=== PATIENT | female | born 1950 | race Caucasian/White ===

== ENCOUNTER 2017-02-26 07:43 | Day surgery (SDC) | payer OTHER, MEDICARE ==
[2017-02-21 11:27] VITALS: BMI 37.8
[2017-02-26] MEDS ORDERED: PROPOFOL 20 ML ONE ×2 (07:56)
[2017-02-26 11:16] VITALS: BP 114/65; PULSE 78; TEMP 98.2
== END 2017-02-26 10:20 | disposition home or self-care (01) ==
LOC: FASU-ENDO 07:43
PROVIDERS: ATTEND Internal Medicine Gastroenterology
PROC: 0DJD8ZZ Inspection of Lower Intestinal Tract, Via Natural or Artificial Opening Endoscopic (ICD-10-PCS; principal; 2017-02-26 09:00)
DX: Z86.010 Personal history of colon polyps (principal); K57.30 Diverticulosis of large intestine without perforation or abscess without bleeding

== ENCOUNTER 2017-12-22 11:19 | Emergency (ER) | payer OTHER, MEDICARE ==
[2017-12-22 11:24] VITALS: BP 153/74; PULSE 85; TEMP 98.9; BMI 42.5
--- NOTE | 2017-12-22 11:44 | PDOC ---
History of Present Illness - General Chief Complaint: Respiratory Stated Complaint: COUGH Time Seen by Provider: 12/22/17 11:24 - History of Present Illness Initial Comments: 12/22/17 13:19 The patient is a 67 year old female with a history of lower extremity edema and HLD who presents for evaluation of cough and fatigue. The patient reports a 4 day history of cough, sweating, body aches, and fatigue. She states that she was visiting her cousin in [place] who had similar symptoms and was diagnosed with bronchitis. The patient states she flew back yesterday and given her symptoms were not improving, decided to present to the ED for evaluation. She states that she has been coughing up yellowish sputum. She denies fevers, chills, chest pain, SOB, nausea, vomiting, abdominal pain, or changes with urination or bowel movements. Past History - Past Medical History Allergies/Adverse Reactions: Allergies Allergy/AdvReac Type Severity Reaction Status Date / Time No Known Allergies Allergy Verified 12/22/17 11:20 Home Medications: Ambulatory Orders Ascorbate Calcium [Vitamin C] 1,000 mg PO DAILY 02/21/17 Aspirin [Aspirin EC] 81 mg PO DAILY 02/21/17 Atorvastatin Ca [Lipitor] 10 mg PO DAILY 02/21/17 Biotin 1 mg PO DAILY 02/21/17 Calcium Carbonate [Calcium] 500 mg PO DAILY 02/21/17 Cholecalciferol (Vitamin D3) [Vitamin D3] 2,000 unit PO DAILY 02/21/17 Furosemide [Lasix -] 20 mg PO BID 02/21/17 Multivit-Min/Iron/Folic/Lutein [Centrum Silver Women Tablet] 1 each PO DAILY 01/05 Potassium Chloride 10 meq PO BID 02/21/17 Vitamin E Mixed [Vitamin E] 800 unit PO DAILY 02/21/17 Albuterol Sulfate Inhaler - [Ventolin HFA Inhaler -] 1 - 2 inh PO QID PRN #1 inhaler 12/22/17 Azithromycin 500 mg PO DAILY #5 tablet 12/22/17 Anemia: No Asthma: No Cancer: No Cardiac Disorders: No CVA: No COPD: No CHF: No Dementia: No Diabetes: No GI Disorders: No Disorders: No HTN: No Hypercholesterolemia: Yes Liver Disease: No Seizures: No Thyroid Disease: No - Surgical History Abdominal Surgery: No Appendectomy: Yes Cardiac Surgery: No Cholecystectomy: No Lung Surgery: No Neurologic Surgery: No Orthopedic Surgery: Yes (Right Ankle Fusion) - Suicide/Smoking/Psychosocial Hx Smoking History: Former smoker Have you smoked in the past 12 months: No Number of Cigarettes Smoked Daily: 2 Information on smoking cessation initiated: No Hx Alcohol Use: No Drug/Substance Use Hx: No Substance Use Type: None Hx Substance Use Treatment: No Review of Systems - Review of Systems Comments:: 12/22/17 13:23 Constitutional: Fatigue, Body aches. No fevers, chills, HEENT: No Rhinorrhea, nasal congestion, visual changes Cardiovascular: No chest pain, syncope, palpitations, lightheadedness Respiratory: Cough. No SOB, Hemoptysis, Gastrointestinal: No Abdominal pain, Nausea, Vomiting, Constipation, Diarrhea, Melena Genitourinary: No Dysuria, Frequency, Urgency, Hesitancy, Hematuria, Flank pain Musculoskeletal: No Myalgia, arthralgia Skin: No rashes, itching, bruising, pallor Neurologic: No Headache, Dizziness, Numbness, Weakness, or Tingling Psychiatric: No Hallucinations. No SI or HI *Physical Exam - Vital Signs Last Vital Signs Temp Pulse Resp BP Pulse Ox 98.9 F 85 18 153/74 96 12/22/17 11:20 12/22/17 11:20 12/22/17 11:20 12/22/17 11:20 12/22/17 11:20 - Physical Exam Comments: 12/22/17 13:23 General Appearance: Nourished. No Apparent Distress HEENT: No Pharyngeal Erythema, Tonsillar Exudate, Tonsillar Erythema Neck: No Cervical Lymphadenopathy Respiratory/Chest: Lungs Clear, Normal Breath Sounds. No Crackles, Rales, Rhonchi, Wheezing Cardiovascular: Regular Rhythm, Regular Rate. No Murmur, Gallops, Rubs Gastrointestinal/Abdominal: Normal Bowel Sounds, Soft. No Guarding, Rebound, Tenderness Musculoskeletal: No CVA Tenderness Extremity: 3+ pitting edema in the lower extremities. Normal Capillary Refill Integumentary: Normal Color, Dry, Warm Neurologic: Fully Oriented, Alert, Normal Mood/Affect, Normal Response, ED Treatment Course - LABORATORY CBC & Chemistry Diagram: 12/22/17 11:45 12/22/17 11:45 Medical Decision Making - Medical Decision Making 12/22/17 13:24 The patient is a 67 year old female with a history of lower extremity edema and HLD who presents for evaluation of cough and fatigue. Differential includes but is not limited to: Viral illness, Bronchitis, Pneumonia, infectious, metabolic derangement. Given the patient's history, it is likely the patient symptoms are due to a viral illness or bronchitis. We will treat with azithromycin and a duoneb here in the ED. We will obtain a cbc, cmp, bnp, and chest plain film to evaluate further. We will continue to monitor and reassess. 12/22/17 13:29 Chest plain film is unremarkable as read by our radiologist. CBC, cmp are unremarkable. We are comfortable discharging the patient home at this time with an albuterol inhaler and a course of azithromycin. We discussed with the patient return precautions including worsening symptoms, fevers, difficulty breathing. We informed the patient that she should follow up with her primary care provider. The patient voiced understanding and is agreeable with the plan. *DC/Admit/Observation/Transfer Diagnosis at time of Disposition: Bronchitis - Discharge Dispostion Disposition: HOME Condition at time of disposition: Good Admit: No - Prescriptions Prescriptions: Albuterol Sulfate Inhaler - [Ventolin HFA Inhaler -] 1 - 2 inh PO QID PRN #1 inhaler PRN Reason: Wheezing Azithromycin 500 mg PO DAILY #5 tablet - Referrals Referrals: Eh Polanco [Primary Care Provider] - - Patient Instructions Printed Discharge Instructions: DI for Acute Bronchitis Additional Instructions: Please return to the ER if you experience concerning or worsening symptoms including worsening fevers, difficulty breathing, chest pain. Your lab results and x-rays were normal here in the ER. Your symptoms are likely due to a viral bronchitis. We have sent a prescription for antibiotics to your pharmacy which you should take once a day. We have also sent a prescription for an albuterol inhaler to your pharmacy that you may use as needed for wheezing. Please call to schedule a follow up appointment with your primary care provider within 2-3 days to further discuss your ER visit and management of your symptoms. - Post Discharge Activity
[2017-12-22 12:04] LABS: BASO % 1.1 % (0-2.0); EOS % 4.1 % (0-4.5); HEMATOCRIT 40.3 % (32.4-45.2); HEMOGLOBIN 13.3 GM/dl (10.7-15.3); LYMPH % 18.6 % (8-40); MCH 28.6 pg (25.7-33.7); MCHC 33.2 g/dl (32.0-36.0); MEAN CELL VOLUME 86.2 fl (80-96); MEAN PLT VOLUME 6.7 fl (7.5-11.1); MONO % 9.2 % (3.8-10.2); PLATELET COUNT 345 K/MM3 (134-434); RBC 4.67 M/mm3 (3.60-5.2); RDW 13.4 % (11.6-15.6); WHITE BLOOD COUNT 5.1 K/mm3 (4.0-10.8)
[2017-12-22 12:22] LABS: ALBUMIN 4.1 g/dl (3.5-5.0); ALK PHOS 70 U/L (32-92); ANION GAP 9 (8-16); BILIRUBIN,TOTAL 0.8 mg/dl (0.2-1.0); BLOOD UREA NITROGEN 18 mg/dl (7-18); CALCIUM 9.5 mg/dl (8.4-10.2); CHLORIDE 102 mmol/L (98-107); CO2 28 mmol/L (22-28); CREATININE 0.6 mg/dl (0.6-1.3); GLUCOSE,RANDOM 96 mg/dl (74-106); POTASSIUM 4.2 mmol/L (3.5-5.1); SGOT/AST 22 U/L (10-42); SGPT/ALT 21 U/L (10-40); SODIUM 139 mmol/L (136-145); TOT PROT 7.4 g/dl (6.4-8.3)
[2017-12-22] MEDS ORDERED: ALBUTEROL SO4 2.5/IPRATROPIUM 0.5 INH SOL 3 ML VIAL.NEB. NEB ONE ×2 (13:28→13:35)
[2017-12-22] MEDS ORDERED: AZITHROMYCIN 500 MG TABLET PO ONE (13:28)
[2017-12-22] MEDS ORDERED: AZITHROMYCIN 250 MG TABLET ONE (13:35)
--- NOTE | 2017-12-22 13:41 | PDOC ---
Attending Attestation - Resident Resident Name: David Momin - ED Attending Attestation I have performed the following: I have examined & evaluated the patient, The case was reviewed & discussed with the resident, I agree w/resident's findings & plan - HPI HPI: 12/22/17 13:39 67-year-old female with remote history of minimal smoking presents complaining of one week of cough. She was exposed to multiple people with respiratory illness, and she developed a cough productive of white to yellow sputum. There is no fever. There is no chest pain. There is no shortness of breath. - Physicial Exam PE: 12/22/17 13:40 Patient is awake, alert, and fully oriented. Oropharynx is clear. Neck without nodes. Lungs have scattered expiratory wheezes. There are no crackles. Heart is regular rhythm without gallop or murmur. Abdomen is soft and nontender. Extremities are notable for chronic edema, patient states they' re unchanged from baseline for many years. - Medical Decision Making 12/22/17 13:40 Chest x-ray PA and lateral was performed and reviewed by me. There is no focal infiltrate. There is no congestive heart failure. Impression: Acute bronchitis, likely viral versus atypical bacterial. Bronchospasm secondary to acute infection. Plan: Azithromycin, started in the ED and complete course at home DuoNeb in the ED Albuterol 2 puffs every 4 hours as needed at home. follow-up with primary care physician.
[2017-12-22 13:52] LABS: N-TERMINAL BNP 589.25 pg/ml (5-125)
== END 2017-12-22 14:20 | disposition home or self-care (01) ==
LOC: FER 11:19
DX: R05 Cough (principal)
CPT/HCPCS: 36415; 71046-TC-FY; 80053; 83880; 85025; 99283-25

== ENCOUNTER 2018-09-09 17:48 | Emergency (ER) | payer OTHER, MEDICARE ==
[2018-09-09 18:08] VITALS: BP 160/88; PULSE 77; TEMP 97.7; BMI 41.5
[2018-09-09] MEDS ORDERED: IBUPROFEN 600 MG TABLET (FP) PO ONE ×2 (18:12→18:59)
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
== END 2018-09-09 19:25 | disposition home or self-care (01) ==
LOC: FER 17:48
DX: M13.831 Other specified arthritis, right wrist (principal); M65.841 Other synovitis and tenosynovitis, right hand; E78.5 Hyperlipidemia, unspecified; Z87.891 Personal history of nicotine dependence
CPT/HCPCS: 73110-TC-RT-FY; 73130-TC-RT-FY; 99282-25

== ENCOUNTER 2021-06-28 16:32 | Inpatient (IN) | payer OTHER, MEDICARE ==
[2021-06-28 17:25] VITALS: BMI 43.4
[2021-06-28 18:08] LABS: BASO % 0.5 % (0-2.0); EOS % 1.2 % (0-4.5); HEMATOCRIT 39.9 % (32.4-45.2); HEMOGLOBIN 13.7 GM/dL (10.7-15.3); LYMPH % 21.8 % (8-40); MCH 29.9 pg (25.7-33.7); MCHC 34.2 g/dl (32.0-36.0); MEAN CELL VOLUME 87.3 fl (80-96); MEAN PLT VOLUME 6.9 fl (7.5-11.1); MONO % 9.2 % (3.8-10.2); NEUT % 67.3 % (42.8-82.8); PLATELET COUNT 310 10^3/uL (134-434); RBC 4.57 M/mm3 (3.60-5.2); RDW 14.8 % (11.6-15.6); WHITE BLOOD COUNT 7.3 K/mm3 (4.0-10.0)
[2021-06-28 18:31] LABS: ALBUMIN 3.5 g/dl (3.4-5.0); CALCIUM 9.2 mg/dL (8.5-10.1)
[2021-06-28 18:35] LABS: CREATININE 0.9 mg/dL (0.55-1.3)
[2021-06-28 18:36] LABS: BILIRUBIN,TOTAL 0.9 mg/dL (0.2-1)
[2021-06-28 18:39] LABS: N-TERMINAL BNP 5861.7 pg/ml (5-125)
[2021-06-28] MEDS ORDERED: HEPARIN NA (PORCINE) 5,000 UNITS/ML 1ML VIAL IVPUSH ONE (21:59)
[2021-06-28] MEDS ORDERED: HEPARIN NA (PORCINE) 5,000 UNITS/ML 1ML VIAL IVPUSH PRN ×2 (21:59)
[2021-06-28] MEDS ORDERED: HEPARIN INFUSION - 25,000 UNITS/500 ML INFUS.BAG IVPB SCH (22:00)
[2021-06-28] MEDS ORDERED: HEPARIN INFUSION - 25,000 UNITS/500 ML INFUS.BAG IVPB ONE (22:41)
[2021-06-28] MEDS ORDERED: HEPARIN NA (PORCINE) 5,000 UNITS/ML 1ML VIAL ONE (22:41)
[2021-06-29] MEDS ORDERED: MELATONIN 5 MG TABLETS PO ONE (02:07)
[2021-06-29 06:57] LABS: BASO % 0.9 % (0-2.0); EOS % 1.7 % (0-4.5); HEMATOCRIT 36.1 % (32.4-45.2); HEMOGLOBIN 12.4 GM/dL (10.7-15.3); LYMPH % 26.2 % (8-40); MCHC 34.4 g/dl (32.0-36.0); MEAN CELL VOLUME 87.3 fl (80-96); MEAN PLT VOLUME 7.2 fl (7.5-11.1); MONO % 9.4 % (3.8-10.2); NEUT % 61.8 % (42.8-82.8); PLATELET COUNT 269 10^3/uL (134-434); RBC 4.13 M/mm3 (3.60-5.2); WHITE BLOOD COUNT 6.2 K/mm3 (4.0-10.0)
[2021-06-29 07:07] LABS: INR 1.24 (0.83-1.09); PROTHROMBIN TIME (PATIENT) 14.9 SEC (9.7-13.0)
[2021-06-29 09:26] LABS: ALBUMIN 2.8 g/dl (3.4-5.0); BILIRUBIN,TOTAL 0.9 mg/dL (0.2-1); BLOOD UREA NITROGEN 21.3 mg/dL (7-18); CALCIUM 8.6 mg/dL (8.5-10.1); CREATININE 0.7 mg/dL (0.55-1.3); MAGNESIUM 2.3 mg/dL (1.8-2.4); PHOSPHOROUS 4.4 mg/dL (2.5-4.9); TOT PROT 6.1 g/dl (6.4-8.2)
[2021-06-29] MEDS ORDERED: PNEUMOC 13-VAL CONJ-DIP CRM/PF 0.5 ML DISP.SYRIN IM ONE (10:00)
[2021-06-29] MEDS: MUPIROCIN 2% TOPICAL OINTMENT FOR DECOLONIZATION NS SCH ×2 (11:00→22:32)
[2021-06-29] MEDS ORDERED: ALTEPLASE IVPB ONE (15:15)
[2021-06-29] MEDS ORDERED: SODIUM CHLORIDE IVPB ONE (15:15)
[2021-06-29] MEDS ORDERED: MIDAZOLAM HCL 2 MG/2 ML SINGLE DOSE VIAL IVPUSH ONE (15:32)
[2021-06-29] MEDS ORDERED: MIDAZOLAM HCL 2 MG/2 ML SINGLE DOSE VIAL ONE (15:37)
[2021-06-29] MEDS ORDERED: HEPARIN NA (PORCINE) 5,000 UNITS/ML 1ML VIAL IVPUSH PRN (18:20)
[2021-06-29] MEDS: HEPARIN - 25,000 UNIT in SODIUM CHLORIDE 495 ML IV SCH (18:20)
[2021-06-29] MEDS ORDERED: ACETAMINOPHEN 1000 MG/100 ML VIAL (NON FORMULARY) IVPB PRN (21:19)
[2021-06-29] MEDS: ACETAMINOPHEN 325 MG TABLET (FP) PO PRN (22:14)
[2021-06-29] MEDS: CHLORHEXIDINE GLUCONATE 4% CLEANSER FOR DECOLONIZATION TP SCH (22:32)
[2021-06-30] MEDS: HEPARIN NA (PORCINE) 5,000 UNITS/ML 1ML VIAL IVPUSH PRN (01:53)
[2021-06-30 07:01] LABS: HEMOGLOBIN 12.7 GM/dL (10.7-15.3); MCH 29.5 pg (25.7-33.7); MCHC 33.5 g/dl (32.0-36.0); MEAN PLT VOLUME 7.2 fl (7.5-11.1); PLATELET COUNT 290 10^3/uL (134-434); RBC 4.32 M/mm3 (3.60-5.2); RDW 14.6 % (11.6-15.6); WHITE BLOOD COUNT 6.7 K/mm3 (4.0-10.0)
[2021-06-30 07:25] LABS: CALCIUM 8.6 mg/dL (8.5-10.1)
[2021-06-30 07:26] LABS: ALBUMIN 2.9 g/dl (3.4-5.0); MAGNESIUM 2.2 mg/dL (1.8-2.4)
[2021-06-30 07:29] LABS: CREATININE 0.7 mg/dL (0.55-1.3); PHOSPHOROUS 3.3 mg/dL (2.5-4.9)
[2021-06-30 07:31] LABS: TOT PROT 6.4 g/dl (6.4-8.2)
[2021-06-30] MEDS: MUPIROCIN 2% TOPICAL OINTMENT FOR DECOLONIZATION NS SCH ×2 (11:00→22:29)
[2021-06-30] MEDS ORDERED: ALTEPLASE 50MG 25 MG in SODIUM CHLORIDE 225 ML IVPB ONE (15:45)
[2021-06-30] MEDS ORDERED: LIDOCAINE PATCH REMOVAL MC ONE (22:00)
[2021-06-30] MEDS: HEPARIN - 25,000 UNIT in SODIUM CHLORIDE 495 ML IV SCH (22:28)
[2021-06-30] MEDS: CHLORHEXIDINE GLUCONATE 4% CLEANSER FOR DECOLONIZATION TP SCH (22:29)
[2021-06-30] MEDS: ACETAMINOPHEN 1000 MG/100 ML VIAL (NON FORMULARY) IVPB PRN (22:29)
[2021-06-30] MEDS ORDERED: LIDOCAINE 5% TOPICAL PATCH TP ONE ×2 (22:33→23:06)
[2021-07-01] MEDS: MUPIROCIN 2% TOPICAL OINTMENT FOR DECOLONIZATION NS SCH ×2 (10:00→22:36)
[2021-07-01] MEDS: ACETAMINOPHEN 1000 MG/100 ML VIAL (NON FORMULARY) IVPB PRN ×2 (10:34→19:32)
[2021-07-01] MEDS ORDERED: LIDOCAINE PATCH REMOVAL MC ONE (11:00)
[2021-07-01] MEDS ORDERED: LIDOCAINE 5% TOPICAL PATCH TP ONE ×2 (11:39→22:56)
[2021-07-01] MEDS ORDERED: LIDOCAINE PATCH REMOVAL MC PRN (17:50)
[2021-07-01] MEDS ORDERED: LIDOCAINE PATCH REMOVAL MC SCH (22:00)
[2021-07-01] MEDS: CHLORHEXIDINE GLUCONATE 4% CLEANSER FOR DECOLONIZATION TP SCH (22:36)
[2021-07-01 23:02] LABS: INR 1.29 (0.83-1.09); PROTHROMBIN TIME (PATIENT) 15.7 SEC (9.7-13.0)
[2021-07-01 23:05] LABS: ACTIVATED PTT 32.7 SECONDS (25.2-36.5)
[2021-07-01] MEDS: HEPARIN NA (PORCINE) 5,000 UNITS/ML 1ML VIAL IVPUSH PRN (23:44)
[2021-07-02] MEDS: LIDOCAINE PATCH REMOVAL MC SCH ×2 (00:13→22:10)
[2021-07-02] MEDS: ACETAMINOPHEN 325 MG TABLET (FP) PO PRN (01:25)
[2021-07-02] MEDS ORDERED: HEPARIN NA (PORCINE) 5,000 UNITS/ML 1ML VIAL SQ ONE (02:01)
[2021-07-02] MEDS ORDERED: POLYETHYLENE GLYCOL (HEALTHYLAX) 3350 17 GM PACKET PO PRN (07:42)
[2021-07-02] MEDS: ALPRAZolam 0.25 MG TABLET PO PRN (07:56)
[2021-07-02] MEDS: HEPARIN NA (PORCINE) 5,000 UNITS/ML 1ML VIAL IVPUSH PRN (12:13)
[2021-07-02] MEDS: MUPIROCIN 2% TOPICAL OINTMENT FOR DECOLONIZATION NS SCH ×2 (13:09→22:06)
[2021-07-02] MEDS ORDERED: PT OWN MED DRAWER 7, Y5N ONE (14:17)
[2021-07-02] MEDS: HEPARIN - 25,000 UNIT in SODIUM CHLORIDE 495 ML IV SCH ×2 (15:19→22:10)
[2021-07-02] MEDS: DOCUSATE SODIUM 100 MG CAPSULE (FP) PO PRN (18:43)
[2021-07-02] MEDS: CHLORHEXIDINE GLUCONATE 4% CLEANSER FOR DECOLONIZATION TP SCH (22:06)
[2021-07-02] MEDS ORDERED: ACETAMINOPHEN 1000 MG/100 ML VIAL (NON FORMULARY) IVPB ONE (23:54)
[2021-07-03 07:54] LABS: BASO % 0.9 % (0-2.0); EOS % 3.7 % (0-4.5); HEMOGLOBIN 11.9 GM/dL (10.7-15.3); LYMPH % 29.2 % (8-40); MCH 29.8 pg (25.7-33.7); MCHC 34.1 g/dl (32.0-36.0); MEAN CELL VOLUME 87.3 fl (80-96); MEAN PLT VOLUME 7.4 fl (7.5-11.1); MONO % 10.5 % (3.8-10.2); NEUT % 55.7 % (42.8-82.8); PLATELET COUNT 296 10^3/uL (134-434); RBC 4.01 M/mm3 (3.60-5.2); RDW 14.6 % (11.6-15.6); WHITE BLOOD COUNT 5.8 K/mm3 (4.0-10.0)
[2021-07-03 08:03] LABS: CALCIUM 8.7 mg/dL (8.5-10.1)
[2021-07-03 08:04] LABS: BLOOD UREA NITROGEN 17.8 mg/dL (7-18); MAGNESIUM 2.2 mg/dL (1.8-2.4)
[2021-07-03 08:07] LABS: CREATININE 0.7 mg/dL (0.55-1.3); PHOSPHOROUS 3.9 mg/dL (2.5-4.9)
[2021-07-03 08:09] LABS: INR 1.19 (0.83-1.09); PROTHROMBIN TIME (PATIENT) 14.6 SEC (9.7-13.0)
[2021-07-03 08:13] LABS: ACTIVATED PTT 43.3 SECONDS (25.2-36.5)
[2021-07-03] MEDS ORDERED: PT OWN MED DRAWER 7, Y5N ONE (09:56)
[2021-07-03] MEDS: MUPIROCIN 2% TOPICAL OINTMENT FOR DECOLONIZATION NS SCH ×2 (09:57→21:48)
[2021-07-03] MEDS: HEPARIN NA (PORCINE) 5,000 UNITS/ML 1ML VIAL IVPUSH PRN (18:35)
[2021-07-03] MEDS: HEPARIN - 25,000 UNIT in SODIUM CHLORIDE 495 ML IV SCH (21:43)
[2021-07-03] MEDS: DOCUSATE SODIUM 100 MG CAPSULE (FP) PO PRN (21:46)
[2021-07-03] MEDS: CHLORHEXIDINE GLUCONATE 4% CLEANSER FOR DECOLONIZATION TP SCH (21:48)
[2021-07-04 07:47] LABS: MCH 29.4 pg (25.7-33.7); MCHC 33.4 g/dl (32.0-36.0); MEAN CELL VOLUME 88.1 fl (80-96); PLATELET COUNT 322 10^3/uL (134-434); RBC 4.09 M/mm3 (3.60-5.2); RDW 14.3 % (11.6-15.6)
[2021-07-04 07:59] LABS: INR 1.12 (0.83-1.09); PROTHROMBIN TIME (PATIENT) 13.7 SEC (9.7-13.0)
[2021-07-04 08:01] LABS: ACTIVATED PTT 49.2 SECONDS (25.2-36.5)
[2021-07-04 08:25] LABS: BLOOD UREA NITROGEN 21.9 mg/dL (7-18); CALCIUM 8.9 mg/dL (8.5-10.1); MAGNESIUM 2.3 mg/dL (1.8-2.4)
[2021-07-04 08:28] LABS: CREATININE 0.7 mg/dL (0.55-1.3)
[2021-07-04 08:29] LABS: PHOSPHOROUS 3.5 mg/dL (2.5-4.9)
[2021-07-04] MEDS ORDERED: APIXABAN 5 MG TABLET PO SCH (13:45)
[2021-07-04] MEDS: RIVAROXABAN 15 MG TABLET PO SCH ×2 (16:18→21:18)
[2021-07-04] MEDS: CHLORHEXIDINE GLUCONATE 4% CLEANSER FOR DECOLONIZATION TP SCH (21:12)
[2021-07-04] MEDS: DOCUSATE SODIUM 100 MG CAPSULE (FP) PO PRN (21:18)
[2021-07-05] MEDS: ALPRAZolam 0.25 MG TABLET PO PRN (01:38)
[2021-07-05] MEDS: RIVAROXABAN 15 MG TABLET PO SCH ×2 (10:19→21:01)
[2021-07-05] MEDS: CHLORHEXIDINE GLUCONATE 4% CLEANSER FOR DECOLONIZATION TP SCH (21:01)
[2021-07-06] MEDS ORDERED: ALPRAZolam 0.25 MG TABLET PO ONE (01:00)
[2021-07-06 06:09] VITALS: TEMP 98.8
[2021-07-06] MEDS: RIVAROXABAN 15 MG TABLET PO SCH (10:00)
[2021-07-06 12:08] VITALS: BP 143/74; PULSE 98
== END 2021-07-06 12:58 | disposition home or self-care (01) | DRG 167 ==
LOC: JER 16:32 → JERBED 22:46 → JICU 06-29 01:28 → J7W 07-04 20:28
PROVIDERS: ADMIT Internal Medicine Pulmonary Disease; ATTEND Internal Medicine
PROC: 02FR3Z0 Fragmentation of Left Pulmonary Artery, Percutaneous Approach, Ultrasonic (ICD-10-PCS; principal; 2021-06-30)
PROC: 02FQ3Z0 Fragmentation of Right Pulmonary Artery, Percutaneous Approach, Ultrasonic (ICD-10-PCS; 2021-06-30)
PROC: 3E05317 Introduction of Other Thrombolytic into Peripheral Artery, Percutaneous Approach (ICD-10-PCS; 2021-06-30)
PROC: 3E0L3GC Introduction of Other Therapeutic Substance into Pleural Cavity, Percutaneous Approach (ICD-10-PCS; 2021-06-30)
PROC: B31TYZZ Fluoroscopy of Left Pulmonary Artery using Other Contrast (ICD-10-PCS; 2021-06-30)
PROC: B31SYZZ Fluoroscopy of Right Pulmonary Artery using Other Contrast (ICD-10-PCS; 2021-06-30)
PROC: B31TYZZ Fluoroscopy of Left Pulmonary Artery using Other Contrast (ICD-10-PCS; 2021-07-01)
PROC: B31SYZZ Fluoroscopy of Right Pulmonary Artery using Other Contrast (ICD-10-PCS; 2021-07-01)
DX: I26.99 Other pulmonary embolism without acute cor pulmonale (principal); I74.4 Embolism and thrombosis of arteries of extremities, unspecified; Z68.43 Body mass index [BMI] 50.0-59.9, adult; I47.2 Ventricular tachycardia; E78.5 Hyperlipidemia, unspecified; I89.0 Lymphedema, not elsewhere classified; E66.9 Obesity, unspecified
CPT/HCPCS: 36415; 37184; 37187; 37211; 71046-TC-FY; 71275-TC; 75746-TC-FY; 80048; 80053; 82550; 82962; 83735; 83880; 84100; 84484; 85025; 85027; 85610; 85730; 87804; 90670; 93005; 93010; 93306-TC; 93971-TC; 94010; 94761; 97116-GP; 97161-GP; 99285-25; C1769; C1894; C9803; J0131; J1644; J2997; Q9967; U0003; U0005

== ENCOUNTER 2024-03-10 14:16 | Emergency (ER) | payer OTHER ==
[2024-03-10 14:30] VITALS: RESP 20; TEMP 98; BMI 28.3
[2024-03-10] MEDS: ASPIRIN 325 MG ENTERIC COATED TABLET (FP) PO ONE (15:37)
[2024-03-10 15:44] LABS: BASO % 1.3 % (0-2.0); EOS % 1.4 % (0-4.5); HEMOGLOBIN 12.7 GM/dL (10.7-15.3); LYMPH % 20.3 % (8-40); MCH 29.1 pg (25.7-33.7); MCHC 33.5 g/dl (32.0-36.0); MEAN CELL VOLUME 86.8 fl (80-96); MEAN PLT VOLUME 6.5 fl (7.5-11.1); PLATELET COUNT 271 10^3/uL (134-434); RBC 4.37 M/mm3 (3.60-5.2); RDW 15.6 % (11.6-15.6); WHITE BLOOD COUNT 4.5 K/mm3 (4.0-10.0)
[2024-03-10 15:49] LABS: INR 1.2 (0.83-1.09); PROTHROMBIN TIME (PATIENT) 13.5 SEC (9.7-13.0)
[2024-03-10 16:06] LABS: POTASSIUM 4.4 mmol/L (3.5-5.1)
[2024-03-10 16:08] LABS: ALBUMIN 3.6 g/dl (3.4-5.0); BLOOD UREA NITROGEN 33.1 mg/dL (7-18); CALCIUM 9.4 mg/dL (8.5-10.1)
[2024-03-10 16:13] LABS: BILIRUBIN,TOTAL 0.4 mg/dL (0.2-1); TOT PROT 6.7 g/dl (6.4-8.2)
[2024-03-10 16:17] LABS: CREATININE 0.8 mg/dL (0.55-1.3)
[2024-03-10 17:04] VITALS: BP 124/63; PULSE 80
== END 2024-03-10 18:00 | disposition left against medical advice (07) ==
LOC: JER 14:16
DX: R55 Syncope and collapse (principal)
CPT/HCPCS: 36415; 71045-TC-FY; 80053; 84484; 85025; 85610; 93005; 93010; 99285-25